=== PATIENT | female | born 1970 | race Caucasian/White ===

== ENCOUNTER 2023-05-11 20:36 | Emergency (ER) | payer OTHER ==
[~2023-05-11] VITALS: Ht 162.6 cm; Wt 74.4 kg
[2023-05-11 21:35] VITALS: BP_SYST 147; PULSE 98; RESP 20; TEMP 98.3; O2SAT 99
[2023-05-12] MEDS ORDERED: CEPH-548 PO (00:10)
[2023-05-12 00:25] VITALS: BP_SYST 145; PULSE 90; RESP 18; TEMP 98.3; O2SAT 99
== END 2023-05-12 00:25 | disposition home or self-care (01) ==
LOC: SED 20:36
DX: S71.112A Laceration without foreign body, left thigh, initial encounter (principal); S09.90XA Unspecified injury of head, initial encounter; Z88.5 Allergy status to narcotic agent; W20.8XXA Other cause of strike by thrown, projected or falling object, initial encounter; Y93.89 Activity, other specified; Y92.89 Other specified places as the place of occurrence of the external cause; Y99.8 Other external cause status
CPT/HCPCS: 99283

== ENCOUNTER 2023-08-03 20:01 | Emergency (ER) | payer OTHER ==
[~2023-08-03] VITALS: Ht 162.6 cm; Wt 70.3 kg
[~2023-08-03 20:01] MED LIST: CEPH-548 PO
[2023-08-03 20:04] VITALS: BP_SYST 123; PULSE 78; RESP 18; TEMP 98.8; O2SAT 99
[2023-08-03] MEDS ORDERED: IBUP-1969 PO (21:51)
[2023-08-03 21:57] VITALS: BP_SYST 124; PULSE 87; RESP 18; TEMP 98.1; O2SAT 97
== END 2023-08-03 21:57 | disposition home or self-care (01) ==
LOC: SED 20:01
DX: S83.91XA Sprain of unspecified site of right knee, initial encounter (principal); Z88.5 Allergy status to narcotic agent; Z79.2 Long term (current) use of antibiotics; W18.11XA Fall from or off toilet without subsequent striking against object, initial encounter; Y93.11 Activity, swimming; Y92.89 Other specified places as the place of occurrence of the external cause; Y99.8 Other external cause status
CPT/HCPCS: 73590; 99284